=== PATIENT | male | born 1990 | race Two or more races ===

== ENCOUNTER 2017-03-07 14:11 | Emergency (ER) | payer OTHER ==
[2017-03-07] MEDS ORDERED: MORPHINE SULFATE 10 MG/ML INJ IV ONE (14:41)
[2017-03-07] MEDS ORDERED: LIDOCAINE 1% INJ-PF (10 MG/ML) 30 ML SDV INJ ONE (14:45)
[2017-03-07] MEDS ORDERED: HYDROCODONE/ACETAMINOPHEN 5-325 MG TABLET PO ONE (14:46)
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
[2017-03-07] MEDS ORDERED: MUPIROCIN 2% OINTMENT 22 GM TP ONE (16:19)
[2017-03-07 16:55] VITALS: BP 144/80
== END 2017-03-07 16:50 | disposition home or self-care (01) ==
LOC: ER 14:11
DX: S40.212A Abrasion of left shoulder, initial encounter (principal); R51 Headache; M25.562 Pain in left knee; V58.5XXA Driver of pick-up truck or van injured in noncollision transport accident in traffic accident, initial encounter; Y92.410 Unspecified street and highway as the place of occurrence of the external cause; Y99.0 Civilian activity done for income or pay; F17.200 Nicotine dependence, unspecified, uncomplicated
CPT/HCPCS: 99284; 73552; 73030; 70450; J3490